=== PATIENT | female | born 1955 | race Two or more races ===

== ENCOUNTER 2016-12-24 09:20 | Emergency (ER) | payer BC ==
[2016-12-24 09:27] VITALS: BP 123/83
--- NOTE | 2016-12-24 09:56 | ER Document Report ---
HPI - HPI Patient complains to provider of: right knee pain Pain Level: 5 Context: pt is 61 yo female c/o right knee pain. 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 Pt has moved to [place], has not ortho locally. Last pain Rx filled for #45 Percocet 5mg. pt reports she is in physical therapy, doing well but since out of pain med x 2 days, pain has intensified and muscled feel really tight.. no fever, no shortness of breath, no chest pain Exacerbated by: Movement, Walking Relieved by: Denies Similar symptoms previously: Yes Recently seen / treated by doctor: No - ROS Systems Reviewed and Negative: Yes All other systems reviewed and negative - DERM Skin Color: Normal Past Medical History - General Information source: Patient - Social History Smoking Status: Never Smoker Frequency of alcohol use: None Drug Abuse: None Lives with: Family Family History: Reviewed & Not Pertinent - Past Medical History Cardiac Medical History: Reports: Hx Hypertension Denies: Hx Coronary Artery Disease, Hx Heart Attack Pulmonary Medical History: Denies: Hx Asthma, Hx Bronchitis, Hx COPD, Hx Pneumonia Neurological Medical History: Denies: Hx Cerebrovascular Accident, Hx Seizures Renal/ Medical History: Denies: Hx Peritoneal Dialysis Musculoskeltal Medical History: Reports Hx Arthritis - hands Past Surgical History: Denies: Hx Hysterectomy, Hx Pacemaker - Immunizations Hx Diphtheria, Pertussis, Tetanus Vaccination: Yes Vertical Provider Document - CONSTITUTIONAL Agree With Documented VS: Yes - INFECTION CONTROL TRAVEL OUTSIDE OF THE [place] IN LAST 30 DAYS: No - HEENT HEENT: Atraumatic, PERRLA - NECK Neck: Normal Inspection, Supple - RESPIRATORY Respiratory: Breath Sounds Normal, No Respiratory Distress O2 Sat by Pulse Oximetry: 98 - CARDIOVASCULAR Cardiovascular: Regular Rate, Regular Rhythm - MUSCULOSKELETAL/EXTREMETIES Musculoskeletal/Extremeties: Non-Tender - right knee with healing incision. + tenderness medial compartment wtih + soft tissue swelling. decreased ROM with flexion - NEURO Level of Consciousness: Awake, Alert, Appropriate Course - Re-evaluation Re-evalutation: 12/24/16 09:54 discussed pain management with patient. ER does not manage post op pain. she must establish with ortho/primary care for further management. I will prescribed short course of pain medication, muscle relaxant and anti inflammatory medications. pt's incison is healing well. no s/s infection. distal SMC intact. pt instructed to continue physical therapy as arranged. pt is stable for DC and agreeable with plan - Vital Signs Vital signs: Temp Pulse Resp BP Pulse Ox 97.6 F 75 20 123/83 98 12/24/16 09:26 12/24/16 09:26 12/24/16 09:26 12/24/16 09:12/24/16 09:26 Discharge - Discharge Clinical Impression: Right knee pain Qualifiers: Chronicity: acute Qualified Code(s): M25.561 - Pain in right knee Condition: Stable Disposition: HOME, SELF-CARE Instructions: Ibuprofen (General) ([facility]), Muscle Relaxers ([facility]), Oral Narcotic Medication ([facility]) Additional Instructions: Please establish with orthopedist BRANT to help you with your knee rehab and pain control I am writing you a prescription for pain medication, muscle relaxant and anti- inflammatory medications for just a few days, You will have to follow up with orthopedist for further pain medications if needed. We cannot refill pain meds in ER Prescriptions: Ibuprofen [Motrin 800 Mg Tablet] 800 mg PO Q6H #20 tablet Methocarbamol [Robaxin 500 Mg Tablet] 1,000 mg PO Q6 #30 tablet Oxycodone HCl/Acetaminophen [Percocet 5-325 mg Tablet] 1 tab PO Q4H PRN #20 tablet PRN Reason: Referrals: MAME RODRIGUEZ MD [ACTIVE STAFF] - Follow up as needed
== END 2016-12-24 10:15 | disposition home or self-care (01) ==
LOC: ER 09:20
DX: M25.561 Pain in right knee (principal); I10 Essential (primary) hypertension; Z96.651 Presence of right artificial knee joint
CPT/HCPCS: 99283

== ENCOUNTER → 2017-04-27 | Outpatient (CLI) | payer BC ==
--- NOTE | 2017-04-27 17:21 | WOMENS IMAGING REPORT ---
EXAM DESCRIPTION: BILAT SCREENING MAMMO W/CAD COMPLETED DATE/TIME: 04/27/2017 9:51 am REASON FOR STUDY: SCREENING MAMMO Z12.31 ENCNTR SCREEN MAMMOGRAM FOR MALIGNANT NEOPLASM OF [place]IA COMPARISON: 01/06/2016 and 08/04/2014. TECHNIQUE: Standard craniocaudal and mediolateral oblique views of each breast recorded using [employer] acquisition. LIMITATIONS: None. FINDINGS: No masses, calcifications or architectural distortion. No areas of suspicion. Read with the assistance of CAD. .[facility] - R2 Cenova Version 1.3 .[facility] - R2 Cenova Version 1.3 .[facility] - R2 Cenova Version 2.4 .[facility] [place] - R2 Cenova Version 2.4 .[facility] - R2 Quality Compliance Consultant Version 9.2 IMPRESSION: NORMAL MAMMOGRAM. BIRADS 1. BREAST DENSITY: b. There are scattered areas of fibroglandular density. BIRAD: 1 NEGATIVE RECOMMENDATION: ROUTINE SCREENING COMMENT: The patient has been notified of the results by letter per SA requirements. Additional no tification policies are in place for contacting patient with suspicious or incomplete findings. Quality ID #[id number]: The [employer] recommends an annual screening mammogram for women aged 40 years or over. This facility utilizes a reminder system to ensure that all patients receive reminder letters, and/or direct phone calls for appointments. This includes reminders for routine scr eening mammograms, diagnostic mammograms, or other Breast Imaging Interventions when appropriate. Th is patient will be placed in the appropriate reminder system. The [employer] (A[employer]) has developed recommendations for screening MRI of the breast s in certain patient populations, to be used in conjunction with mammography. Breast MRI surveillanc e may be appropriate for women with more than 20% lifetime risk of developing breast cancer as deter mined by genetic testing, significant family history of the disease, or history of mantle radiation f or Hodgkins Disease. ACR Practice Guidelines 2008. TECHNICAL DOCUMENTATION: FINDING NUMBER: (1) ASSESSMENT: (1) JOB ID: [id number] [employer]- All Rights Reserved
== END ==
LOC: WI 09:27
PROVIDERS: ATTEND Family Medicine
DX: Z12.31 Encounter for screening mammogram for malignant neoplasm of breast (principal)
CPT/HCPCS: 77067